=== PATIENT | male | born 1980 | race African-American/Black ===

== ENCOUNTER 2020-10-09 01:24 | Emergency (ER) | payer SELFPAY ==
[~2020-10-09] VITALS: Ht 175.3 cm; Wt 73.0 kg
[2020-10-09] MEDS ORDERED: LORAZEPAM 2MG/ML CPJ IV ONE ×2 (02:00→03:45)
[2020-10-09] MEDS ORDERED: ACETAMINOPHEN 325MG TABLET PO ONE (02:00)
[2020-10-09 02:33] LABS: HEMATOCRIT. 44.2 % (42.0-52.0); HEMOGLOBIN. 15.6 g/dL (14.0-18.0); MEAN CORPUSCULAR HEMOGLOBIN 31.6 pg (28.0-32.0); MEAN CORPUSCULAR VOLUME 89.7 fL (80.0-94.0); MEAN PLATELET VOLUME 8.5 fl (7.4-10.4); PLATELET 312 x1000/uL (130-400); RED BLOOD CELL COUNT 4.93 mill/uL (4.7-6.1); RED CELL DISTRIBUTION WIDTH 12.8 % (11.6-14.6)
[2020-10-09 02:42] LABS: CHLORIDE 106 mEq/L (98-107)
[2020-10-09 03:44] LABS: CLARITY URINE CLEAR (CLEAR); COLOR URINE YELLOW (YELLOW); KETONES URINE 1+ (NEGATIVE); LEUKOCYTE ESTERASE URINE NEGATIVE (NEGATIVE); NITRITE URINE NEGATIVE (NEGATIVE); OCCULT BLOOD URINE NEGATIVE (NEGATIVE); PROTEIN URINE 1+ (NEGATIVE); SPECIFIC GRAVITY URINE 1.022 (1.005-1.030)
[2020-10-09 03:53] LABS: *AMPHETAMINES SCREEN URINE PRESUMTIVE POSITIVE (NEGATIVE); *BARBITURATES SCREEN URINE NEGATIVE (NEGATIVE); *BENZODIAZEPINES SCREEN URINE NEGATIVE (NEGATIVE); *COCAINE SCREEN URINE NEGATIVE (NEGATIVE); METHADONE URINE SCREEN NEGATIVE (NEGATIVE); OPIATES URINE SCREEN PRESUMTIVE POSITIVE (NEGATIVE)
[2020-10-09 03:54] LABS: CANNABINOID URINE SCREEN PRESUMTIVE POSITIVE (NEGATIVE); PHENCYCLIDINE URINE SCREEN NEGATIVE (NEGATIVE)
[2020-10-09 04:52] LABS: PLATELET ESTIMATE NORMAL
[2020-10-09] MEDS ORDERED: IBUP-2029 MT (05:59)
[2020-10-09] MEDS ORDERED: IBUPROFEN 800MG TABLET PO ONE (09:15)
[2020-10-09 10:59] VITALS: BP 140/60
== END 2020-10-09 11:01 | disposition home or self-care (01) ==
LOC: ER 01:24
DX: S99.0 Physeal fracture of calcaneus (principal); S32.018A Other fracture of first lumbar vertebra, initial encounter for closed fracture; F15.10 Other stimulant abuse, uncomplicated; F16.10 Hallucinogen abuse, uncomplicated; F11.10 Opioid abuse, uncomplicated; F12.10 Cannabis abuse, uncomplicated; W17.89XA Other fall from one level to another, initial encounter; Y93.39 Activity, other involving climbing, rappelling and jumping off; Y92.89 Other specified places as the place of occurrence of the external cause
CPT/HCPCS: 29515; 36415; 72100; 72131; 73610; 73630; 80053; 80305; 81003; 85025; 96374; 96376; 99285; J2060; Z7610